=== PATIENT | male | born 1985 | race Two or more races ===

== ENCOUNTER 2016-02-29 11:25 | Emergency (ER) | payer OTHER ==
[~2016-02-29] VITALS: Ht 170.2 cm; Wt 81.6 kg
[2016-02-29 11:33] VITALS: BP 110/77
[2016-02-29 12:05] VITALS: BP 110/77
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
== END 2016-02-29 12:07 ==
LOC: EDBD 11:25 → EMR 12:00
DX: Z02.89 Encounter for other administrative examinations (principal); R00.2 Palpitations; F41.9 Anxiety disorder, unspecified
CPT/HCPCS: 99282